=== PATIENT | female | born 1995 | race African-American/Black ===

== ENCOUNTER 2018-01-30 03:21 | Emergency (ER) | payer OTHER ==
[~2018-01-30] VITALS: Ht 162.6 cm; Wt 82.2 kg
[2018-01-30 03:30] VITALS: TEMP 36.7; Ht 162.6 cm; Wt 82.2 kg
[2018-01-30] MEDS ORDERED: HYDROCODONE/ACETAMIN 5/325MG TAB PO ONE (03:45)
[2018-01-30 05:16] VITALS: BP 112/64; PULSE 75; O2SAT 93
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
== END 2018-01-30 05:28 | disposition home or self-care (01) ==
LOC: EDBD 03:21 → C.EDA 03:25
DX: T14.8XXA Other injury of unspecified body region, initial encounter (principal); S50.312A Abrasion of left elbow, initial encounter; M25.522 Pain in left elbow; V43.62XA Car passenger injured in collision with other type car in traffic accident, initial encounter; Y92.410 Unspecified street and highway as the place of occurrence of the external cause